=== PATIENT | female | born 1935 | race Caucasian/White ===

== ENCOUNTER 2019-01-19 10:54 | Outpatient (CLI) | payer OTHER ==
[~2019-01-19 10:54] MED LIST: DIOVAN160 M1
== END 2019-01-19 11:02 | disposition home or self-care (01) ==
LOC: SONOGRAMA 10:54
DX: M79.652 Pain in left thigh (principal)

== ENCOUNTER 2019-08-20 08:32 | Emergency (ER) | payer OTHER ==
[~2019-08-20] VITALS: Ht 160 cm; Wt 90.7 kg
[2019-08-20] MEDS ORDERED: CANABIS PO (08:43)
[2019-08-20] MEDS ORDERED: FLEXERIL (08:44)
[2019-08-20] MEDS ORDERED: FOLTANX TABLET1 EACH PO (08:45)
[2019-08-20] MEDS ORDERED: CAMBIA50 MG PO (08:45)
== END 2019-08-20 10:07 | disposition home or self-care (01) ==
LOC: ER 08:32
DX: M79.652 Pain in left thigh (principal)

== ENCOUNTER 2021-11-10 09:38 | Emergency (ER) | payer OTHER ==
[~2021-11-10] VITALS: Ht 157.5 cm; Wt 81.6 kg
[~2021-11-10 09:38] MED LIST changes: +CAMBIA50 MG PO; +CANABIS PO; +FLEXERIL; +FOLTANX TABLET1 EACH PO
[2021-11-10] MEDS ORDERED: HYDROCORTISONE5 MG (09:45)
[2021-11-10] MEDS ORDERED: IRBESARTAN-HCT1 EAC1 (09:45)
[2021-11-10] MEDS ORDERED: SYNTHROID150 MCG (09:45)
[2021-11-10] MEDS ORDERED: LORAZEPAM1 MG (09:46)
[2021-11-10] MEDS ORDERED: CAMBIA50 MG (09:46)
== END 2021-11-10 12:23 | disposition home or self-care (01) ==
LOC: ER 09:38
DX: J06.9 Acute upper respiratory infection, unspecified (principal); I10 Essential (primary) hypertension; E03.9 Hypothyroidism, unspecified; F12.90 Cannabis use, unspecified, uncomplicated

== ENCOUNTER 2022-06-05 19:44 | Emergency (ER) | payer OTHER ==
[~2022-06-05] VITALS: Ht 157.5 cm; Wt 81.6 kg
[~2022-06-05 19:44] MED LIST changes: +CAMBIA50 MG; +HYDROCORTISONE5 MG; +IRBESARTAN-HCT1 EAC1; +LORAZEPAM1 MG; +SYNTHROID150 MCG
== END 2022-06-05 22:09 | disposition home or self-care (01) ==
LOC: ER 19:44
DX: S20.01XA Contusion of right breast, initial encounter (principal); W18.30XA Fall on same level, unspecified, initial encounter; Y93.9 Activity, unspecified; Y92.018 Other place in single-family (private) house as the place of occurrence of the external cause; Y99.9 Unspecified external cause status; I10 Essential (primary) hypertension; E03.9 Hypothyroidism, unspecified

== ENCOUNTER 2022-06-09 09:34 | Outpatient (CLI) | payer OTHER | END 2022-06-09 10:30 | disposition home or self-care (01) | LOC: SONOGRAMA 09:34 | PROVIDERS: ATTEND General Practice | DX: S20.01XA Contusion of right breast, initial encounter (principal) ==